=== PATIENT | female | born 1995 | race Caucasian/White ===

== ENCOUNTER 2016-06-03 08:04 | Inpatient (IN) | payer OTHER ==
[2016-06-03] MEDS ORDERED: Ibuprofen TAB* 600 MG PO PRN (13:09)
[2016-06-03] MEDS ORDERED: Glycerin ADULT SUPP PR PRN (13:09)
[2016-06-03] MEDS ORDERED: Witch Hazel PAD* JAR TOPICAL PRN (13:09)
[2016-06-03] MEDS ORDERED: Dibucaine 1% 28.35 GM TUBE PR PRN (13:09)
[2016-06-03] MEDS ORDERED: Acetaminophen TAB* 325 MG PO PRN (13:09)
[2016-06-03] MEDS ORDERED: oxyCODONE/Acetamin 5/325 MG* TAB PO PRN (13:09)
[2016-06-03] MEDS ORDERED: OXYTOCIN* 10 UNITS/ML 1 ML VIAL IM ONE (13:09)
[2016-06-03] MEDS: Docusate CAP* 100 MG PO SCH ×2 (14:14→19:52)
[2016-06-04 08:21] LABS: Hematocrit 35 % (35-47); Hemoglobin 11.8 g/dl (12.0-16.0); Mean Corpuscular HGB Conc 33 g/dl (31-36); Mean Corpuscular Hemoglobin 28 pg (27-31); Mean Corpuscular Volume 85 fL (80-97); Mean Platelet Volume 8 um3 (7.4-10.4); Red Blood Count 4.16 10^6/ul (4.0-5.4); Red Cell Distribution Width 14 % (10.5-15); White Blood Count 13.1 10^3/ul (3.5-10.8)
[2016-06-04] MEDS ORDERED: Ferrous Gluconate TAB* 324 MG TAB PO SCH (09:00)
[2016-06-04] MEDS: Docusate CAP* 100 MG PO SCH (09:51)
[2016-06-04 12:32] VITALS: BP 142/82
== END 2016-06-04 14:16 | disposition home or self-care (01) | DRG 560 ==
LOC: MCHOBOUT 08:04 → MCHOB 08:24
PROVIDERS: ADMIT Midwife; ATTEND Midwife
PROC: 10E0XZZ Delivery of Products of Conception, External Approach (ICD-10-PCS; principal; 2016-06-03)
PROC: 10907ZC Drainage of Amniotic Fluid, Therapeutic from Products of Conception, Via Natural or Artificial Opening (ICD-10-PCS; 2016-06-03)
PROC: 3E033VJ Introduction of Other Hormone into Peripheral Vein, Percutaneous Approach (ICD-10-PCS; 2016-06-03)
DX: O48.0 Post-term pregnancy (principal); Z37.0 Single live birth; Z3A.42 42 weeks gestation of pregnancy
CPT/HCPCS: 36415; 85027; A9270-GY; J2590

== ENCOUNTER → 2016-07-13 06:41 | Day surgery (SDC) | payer OTHER ==
[~2016-07-13 06:41] MED LIST: Atracurium* 10 MG/ML 10 ML VIAL ONE; Atropine 1MG/ML INJ* 1 ML VIAL ONE; Buffered Lidocaine 1% SYRIN* 3 ML/SYR SYRINGE INTRADERM ONE; Bupivacaine 0.5% SDV PF* 30 ML VIAL ONE; Dexamethasone IV* 4 MG/ML 1 ML (4 MG) ONE; DiMENhydriNATE IV* 50 MG/ML VIAL IV PUSH PRN; Famotidine TAB* 20 MG ONE; Famotidine TAB* 20 MG PO ONE; Lidocaine 2% PF* 5 ML VIAL ONE; Metoclopramide TAB* 10 MG ONE; Metoclopramide TAB* 10 MG PO ONE; Ondansetron INJ* 2 MG/ML VIAL ONE; Propofol* 10 MG/ML 20 ML BTL IV PUSH ONE; Scopolamine 1.5 mg* PATCH ONE; Scopolamine 1.5 mg* PATCH TRANSDERM ONE; Sodium Citrate/Citric Acid* 15 ML UDC ONE; Sodium Citrate/Citric Acid* 15 ML UDC PO ONE; Succinylcholine* 20 MG/ML 10 ML VIAL ONE; celeCOXIB CAP* 100 MG ONE; celeCOXIB CAP* 200 MG PO ONE; fentaNYL* 50 MCG/ML 2 ML VIAL (100 MCG VIAL) IV PRN; fentaNYL* 50 MCG/ML 2 ML VIAL (100 MCG VIAL) ONE; oxyCODONE/Acetamin 5/325 MG* TAB PO PRN
[2016-07-13 06:44] LABS: Manual Entry Verification CAR0052; UR Preg Internal Control QC Line Present; UR Preg Kit Lot# 6030156
[2016-07-13 07:35] LABS: Hematocrit 37 % (35-47); Hemoglobin 12.2 g/dl (12.0-16.0); Mean Corpuscular HGB Conc 33 g/dl (31-36); Mean Corpuscular Hemoglobin 28 pg (27-31); Mean Corpuscular Volume 84 fL (80-97); Mean Platelet Volume 8 um3 (7.4-10.4); Red Blood Count 4.43 10^6/ul (4.0-5.4); Red Cell Distribution Width 14 % (10.5-15); White Blood Count 8.7 10^3/ul (3.5-10.8)
[2016-07-13 10:13] VITALS: BP 127/80
--- NOTE | 2016-07-13 12:04 | OP ---
DATE OF OPERATION: 07/13/16 [facility] DATE OF : [birth year] SURGEON: Candida Sandhu MD CHERRY SORTER: None. ANESTHESIOLOGIST: Adalberto Miranda MD ANESTHESIA: General PRE-OP DIAGNOSIS: Multiparity, desires permanent sterilization. POST-OP DIAGNOSIS: Multiparity, desires permanent sterilization. OPERATIVE PROCEDURE: Laparoscopic bilateral tubal ligation with fulguration. EBL: Minimal. FLUIDS: Crystalloid. COMPLICATIONS: None. FINDINGS: Normal-appearing uterus, ovaries and tubes. DESCRIPTION OF PROCEDURE: After informed consent was signed, the patient was taken to the operating room where she was given general anesthesia that was found to be adequate. She was prepped and draped in the dorsal lithotomy position in the [facility]. A speculum was placed into the vagina to expose the cervix and the anterior lip of the cervix was grasped with a single- tooth tenaculum. The Aireumlka manipulator was then inserted into the cervix without difficulty. The speculum was removed, gloves were changed and attention was turned to the abdomen. The infraumbilical fold was grasped with an Allis clamp and injected with lidocaine with epinephrine. A 5 mm incision was then made with a scalpel in a vertical fashion. The Visiport and the camera was then assembled and used to enter the abdomen under direct visualization. Trocar was removed, CO2 was connected and the abdomen was insufflated with confirmation to the abdominal cavity. Inspection of the abdominal cavity revealed the previously mentioned findings. A right lateral port was then inserted. First lidocaine was injected followed by a 5 mm incision in the skin with the scalpel and then direct visualization was used to enter the abdomen with a 5 mm trocar. The Kleppinger was then assembled and inserted through the port. First the right tube was grasped, followed to the fimbriated end and then cauterized in the entire mid portion of the tube. Attention was turned to the left tube which was also followed to the fimbriated end, grasped with a Kleppinger and cauterized in the entire mid portion of the tube. Good hemostasis was noted. The ports were then removed. The abdomen was desufflated. Incisions were closed with one [id number]-gb-[id number] suture of 4-0 Vicryl followed by Mastisol and Steri-Stirrups. The patient was cleaned, placed back in the supine position, awakened from anesthesia and taken to the recovery room in stable condition. [id number]/[facility] #: [id number] JUAN ALBERTO
== END | disposition home or self-care (01) ==
LOC: OR 06:41
PROVIDERS: ATTEND Obstetrics & Gynecology
DX: Z30.2 Encounter for sterilization (principal)
CPT/HCPCS: 36415; 81025; 85025; 86850; 86900; 86901; A9270-GY; J0330; J0461; J1100; J2405; J2704; J3010

== ENCOUNTER 2019-03-26 08:13 | Emergency (ER) | payer OTHER ==
--- OUTSIDE RECORDS SUMMARY | 2019-03-26 08:19 | XMS REPORT | Summary of Care ---
:1995 Author Organization [facility] Address [address] [place] [address] Care Team Providers Name Role Phone RadhaSami montanezyas Primary Care Provider Unavailable Reason for Visit Reason Comments Physical for work Flu Vaccine Encounter Details Date Type Department Care Team Description 02/03/2019 Office Visit [place] Alysha hPan, Routine general medical examination at a health care facility (Primary Dx); Practice [facility] [facility] PPD screening test; [address] [facility] [place] [address] [place] [address] [phone] Allergies No Known Allergiesdocumented as of this encounter (statuses as of 02/03/2019) Medications Medication Sig Dispensed Refills Start Date End Date Status Multiple Vitamin Take by mouth. 0 Active (MULTI-VITAMIN DAILY PO) documented as of this encounter (statuses as of 02/03/2019) Active Problems No known active problemsdocumented as of this encounter (statuses as of 2018) Immunizations Name Administration Dates Next Due DTAP Vaccine 11/25/1998, 07/02/1995, 1994, 1994, 1994 HIB 07/02/1995, 1994, 1994, 1994 Hepatitis A Vaccine Peds 12/15/2010, 11/29/2009 Hepatitis B Vaccine 1994, 1994, 1994 Human Papillomavirus 06/26/2007, 02/13/2007, 11/19/2006 Influenza (IM) Preservative Free 02/03/2019, 02/13/2007 Influenza Vaccine Nasal 01/22/2009 MENINGOCOCCAL CONJUGATE VACCINE 08/23/2013, 11/19/2006 MMR VACCINE 11/25/1998, 07/02/1995 Polio - Inactivated Vaccine 11/25/1998, 1994, 1994, 1994 TDAP Vaccine 05/29/2011, 11/17/2005 Varicella Vaccine Live 11/24/2008, 03/26/1995 documented as of this encounter Social History Tobacco Use Types Packs/Day Years Used Date Never Assessed Sex Assigned at Date Recorded Not on file Job Start Date Occupation Industry Not on file Not on file Not on file Travel History Travel Start Travel End No recent travel history available. documented as of this encounter Last Filed Vital Signs Vital Sign Reading Time Taken Comments Blood Pressure 118/50 02/03/2019 1:50 PM EDT Pulse 80 02/03/2019 1:50 PM EDT Temperature - - Respiratory Rate - - Oxygen Saturation 99% 02/03/2019 1:50 PM EDT Inhaled Oxygen Concentration - - Weight 116.6 kg (257 lb) 02/03/2019 1:50 PM EDT Height 165.1 cm (5' 5") 02/03/2019 1:50 PM EDT Body Mass Index 42.77 02/03/2019 1:50 PM EDT documented in this encounter Patient Instructions Patient InstructionsAlysha Peñaloza FNP - 02/03/2019 2:00 PM EDTPPD read in 48 - 72 hours Follow up to establish with new primary care physician documented in this encounter Progress Notes Alysha Peñaloza FNP - 02/03/2019 2:00 PM EDT PATIENT: Tami Abdullahi : 1995 DATE OF SERVICE: 02/03/2019 CHIEF COMPLAINT: Chief Complaint Patient presents with Physical for work Flu Vaccine Subjective HISTORY OF PRESENT ILLNESS: Tami Abdullahi is a 23-y.o. female. HPI Here for physical for work - needs PPD and Flu vaccines No past medical history on file. No family history on file. Current Outpatient Medications Medication Sig Multiple Vitamin (MULTI-VITAMIN DAILY PO) Take by mouth. No current facility-administered medications for this visit. No Known Allergies Social History Socioeconomic History Marital status: Spouse name: Not on file Number of children: Not on file Years of education: Not on file Highest education level: Not on file Occupational History Not on file Social Needs Financial resource strain: Not on file Food insecurity: Worry: Not on file Inability: Not on file Transportation needs: Medical: Not on file Non-medical: Not on file Tobacco Use Smoking status: Not on file Substance and Sexual Activity Alcohol use: Not on file Drug use: Not on file Sexual activity: Not on file Lifestyle Physical activity: Days per week: Not on file Minutes per session: Not on file Stress: Not on file Relationships Social connections: Talks on phone: Not on file Gets together: Not on file Attends synagogue service: Not on file Active member of club or organization: Not on file Attends meetings of clubs or organizations: Not on file Relationship status: Not on file Intimate partner violence: Fear of current or ex partner: Not on file Emotionally abused: Not on file Physically abused: Not on file Forced sexual activity: Not on file Other Topics Concern Not on file Social History Narrative Not on file Over the last 2 weeks, have you been feeling down, depressed, anxious, or hopeless?: 0 Over the past 2 weeks, have you felt little interest or pleasure in doing things ?: 0 REVIEW OF SYSTEMS: Review of Systems Constitutional: Negative for fever and malaise/fatigue. HENT: Negative for congestion, ear pain and sore throat. Eyes: Negative for discharge. Respiratory: Negative for cough and hemoptysis. Gastrointestinal: Negative for diarrhea, nausea and vomiting. Musculoskeletal: Negative for back pain. Objective PHYSICAL EXAM: VITALS: BP 118/50 | Pulse 80 | Ht 5' 5" (1.651 m) | Wt 257 lb (116.6 kg) | SpO2 99% | BMI 42.77 kg/m Body mass index is 42.77 kg/m. Physical Exam Vitals signs reviewed. Constitutional: Appearance: She is obese. HENT: Head: Normocephalic and atraumatic. Right Ear: Hearing and tympanic membrane normal. Left Ear: Hearing and tympanic membrane normal. Nose: Rhinorrhea present. Mouth/Throat: Lips: [place]. Mouth: Mucous membranes are moist. Pharynx: Oropharynx is clear. Uvula midline. No oropharyngeal exudate or posterior oropharyngeal erythema. Eyes: Conjunctiva/sclera: Conjunctivae normal. Pupils: Pupils are equal, round, and reactive to light. Neck: Musculoskeletal: Normal range of motion. Cardiovascular: Rate and Rhythm: Normal rate and regular rhythm. Pulses: Normal pulses. Pulmonary: Effort: Pulmonary effort is normal. Breath sounds: Normal breath sounds. Abdominal: General: Bowel sounds are normal. There is no distension. Palpations: Abdomen is soft. Tenderness: There is no tenderness. There is no guarding or rebound. Musculoskeletal: Normal range of motion. Lymphadenopathy: Cervical: No cervical adenopathy. Skin: General: Skin is warm and dry. Capillary Refill: Capillary refill takes less than 2 seconds. Findings: No rash. Neurological: Mental Status: She is alert and oriented to person, place, and time. Cranial Nerves: Cranial nerves are intact. Sensory: Sensation is intact. Gait: Gait is intact. Psychiatric: Mood and Affect: Mood normal. ASSESSMENT / IMPRESSION: ICD-9-CM ICD-10-CM 1. Routine general medical examination at a health care facility V70.0 Z00.00 2. PPD screening test V74.1 Z11.1 PPD 3. Flu vaccine need V04.81 Z23 NM FLU VACCINE PRES FREE 6MOS+ Plan PPD read in 48 - 72 hours Follow up to establish with new primary care physician Author: EDUARDO Juan 02/03/2019 14:18 documented in this encounter Plan of Treatment Date Type Specialty Care Team Description 02/06/2019 Nurse/Clinical Support Internal Medicine Name Type Priority Associated Diagnoses Date/Time PPD POCT Routine PPD screening test 02/03/2019 2:15 PM EDT Health Maintenance Due Date Last Done Comments CHLAMYDIA SCREENING 1995 PAP SMEAR 1994 HIV SCREENING 2009 INFLUENZA VACCINE (#1) 2018 01/22/2009, 02/13/2007 DEPRESSION SCREENING 02/04/2020 02/03/2019 HPV IMMUNIZATION SERIES Completed 06/26/2007, 02/13/2007, 11/19/2006 MENINGOCOCCAL VACCINE IMM Aged Out 08/23/2013, 11/19/2006 No longer eligible based on patient's age to complete this topic PNEUMOCOCCAL 0-64 YRS Aged Out No longer eligible based on patient's age to complete this topic documented as of this encounter Results Not on filedocumented in this encounter Visit Diagnoses Diagnosis Routine general medical examination at a health care facility - Primary PPD screening test Screening examination for pulmonary tuberculosis Flu vaccine need Need for prophylactic vaccination and inoculation against influenza documented in this encounter (Work) documented as of this encounter
--- NOTE | 2019-03-26 08:20 | UC ---
Throat Pain/Nasal Rhett HPI - HPI Summary HPI Summary: Patient's a 24-year-old female presents with 2 views progressive sore throat. Patient states this morning have painful swallowing. Patient took NyQuil last night but no analgesic today. Patient reports mild fullness in her right ear. Patient denies fevers or chills. No abdominal pain. No nausea vomiting. Patient is able to drink water but states it hurts. Patient states she is not . Denies sick contacts. works in [employer]. Patient's medications as entered in the EMR reviewed - History of Current Complaint Stated Complaint: sore THROAT Hx Obtained From: Patient Hx Last Menstrual Period: 01/21/18 - Allergies/Home Medications Allergies/Adverse Reactions: Allergies Allergy/AdvReac Type Severity Reaction Status Date / Time No Known Allergies Allergy Verified 03/26/19 08:24 PMH/Surg Hx/FS Hx/Imm Hx Previously Healthy: Yes - Surgical History Surgical History: Yes Surgery Procedure, Year, and Place: tubal ligation- july 2016 - Family History Known Family History: Positive: Non-Contributory Negative: Respiratory Disease - Social History Occupation: Employed Full-time Lives: With Family Alcohol Use: None Substance Use Type: None Smoking Status (MU): Never Smoked Tobacco Have You Smoked in the Last Year: No - Immunization History Most Recent Influenza Vaccination: fall 2015 @ work Most Recent Tetanus Shot: 02/22/16 Most Recent Pneumonia Vaccination: none Review of Systems All Other Systems Reviewed And Are Negative: Yes Constitutional: Positive: Fatigue ENT: Positive: Sore Throat, Sinus Congestion Is Patient Immunocompromised?: No Physical Exam - Summary Physical Exam Summary: Vital Signs Reviewed: Yes A+Ox3, no distress Eyes: Conjunctiva Clear, SAVANNA. EOM intact and full ENT: Hearing grossly normal TM x 2 clear, turbinates inflammed and boggy, + PND , mmoist, uvula midline, + exudate b/l tonsils, + erythema/ speaking full easy sentences, no muffle, no drooling Neck: Positive: Supple. no LA, Respiratory: Positive: No respiratory distress, No accessory muscle use + CTA throughout no w/r Cardiovascular: RRR nl s1, s2 no m/r CBT <2 sec abd soft + BS nt/nd no guarding, no distension Musculoskeletal Exam: JENKINS x 4 without difficulty Strength Intact, ROM Intact Neurological: Positive: Alert, + sensation throughout Psychological: Positive: Normal Response To examiner Skin: Positive: no rash, no ecchymosis Triage Information Reviewed: Yes Throat Pain/Nasal Course/Dx - Course Course Of Treatment: Patient presents to urgent care with 2-3 days progressive sore throat. Patient reports painful swallowing. No fevers or chills. Patient took NyQuil last night no analgesic today. No sick contacts. Exam vital signs are stable. Patient was suddenly elevated blood pressure. Recommend follow up PCP. Patient does have erythema to both of her tonsils as well as exudate on both tonsils. Uvula midline. Will start patient on amoxicillin. Reviewed with patient sedation precautions. Patient also discussed. His own will give her 5 day course. Return precautions discussed. Work note given. Patient comfortable on agreement with plan. - Differential Dx/Diagnosis Provider Diagnosis: Strep pharyngitis Discharge ED - Sign-Out/Discharge Documenting (check all that apply): Patient Departure All imaging exams completed and their final reports reviewed: No Studies - Discharge Plan Condition: Stable Disposition: HOME Prescriptions: Amoxicillin PO (*) [Amoxicillin 400 MG/5 ML SUSP*] 560 mg PO BID #1 bottle predniSONE [Prednisone 20 MG TAB] 40 mg PO DAILY #10 tablet Patient Education Materials: Strep Throat (ED) Forms: *Work Release Referrals: Radha BRAR,[facility] [Primary Care Provider] - Additional Instructions: - Okay to alternate ibuprofen (Advil, Motrin) and Tylenol every 3 hours for pain. Take with food. Do NOT take for more than 4-5 days - Okay to gargle and spit warm salt water every 4 hours as needed for pain - Stay well hydrated - frequent sips of cold fluids will be soothing to your throat (popsicles, jello, ice cream, ice water). Avoid excess caffeine until your symptoms have resolved. -Throat infections are spread by oral secretions - do not share eating or drinking utensils until you symptoms are resolved. Clean items that may get your secretions such as cell phones, ipads, computer mouse, television remotes. Once you have been on antibiotics for 2 days, change your toothbrush and your pillowcase. - Take antibiotics and prednisone as prescribed - humidify the air in the room where you sleep - boil water, run a hot steam shower, vaporizer, cups of water by heat register - Okay to take over the counter cough and decongestant medication - Contact your doctor to arrange a follow-up appointment as needed - Billing Disposition and Condition Condition: STABLE Disposition: Home
[2019-03-26 08:24] VITALS: BP 144/86
== END 2019-03-26 09:10 | disposition home or self-care (01) ==
LOC: UCEAST 08:13
DX: J02.0 Streptococcal pharyngitis (principal); R53.83 Other fatigue
CPT/HCPCS: 87651; 99212; G0463

== ENCOUNTER 2019-08-04 09:15 | Emergency (ER) | payer OTHER ==
[2019-08-04 09:28] VITALS: BP 153/88
--- NOTE | 2019-08-04 09:32 | UC ---
Cardiac HPI - HPI Summary HPI Summary: 24 y/o female presents to the urgent care c/o RT posterior side rib pain s/p injury with her porch on Sunday08/01/2019. Pt reports she was cleaning and she strike the porch railing with her Rt lateral side of her chest. Sunday morning she woke up w/ pain. She has taken Tylenol PO to alleviate symptoms. However, pain has worsen with time and this morning pain is worse 5/10 with movement and with deep breathing w/o any radiation. Pt has not taken anything to alleviate symptoms. Pt denies difficulty breathing fever, cough, SOB, wheezing, chest pain, abdominal pain, LAWTON, dizziness, sick contacts, N/V/D. - History of Current Complaint Chief Complaint: UCGeneralIllness Stated Complaint: RIB INJURY Time Seen by Provider: 08/04/19 09:29 Hx Obtained From: Patient Hx Last Menstrual Period: 07/29/19 Onset/Duration: Sudden Onset, Lasting Days - 3 days, Still Present, Worse Since - today Timing: Constant Initial Severity: Mild Current Severity: Moderate Pain Intensity: 5 Chest Pain Location: Discrete at: - RT lateral rib side pain s/p injury Character: Sharp/Stabbing Aggravating Factor(s): Deep Breaths Alleviating Factor(s): Rest Associated Signs & Symptoms: Negative: Chest Pain, Vision Changes, Anxiety, Recent Stress, Headaches, Numbness, Tingling, Dizziness, SOB, Swelling, Fever, Palpitations, Cough, Back Pain, Abdominal Pain, Calf Pain/Swelling - Risk Factors Pulmonary Embolism Risk Factors: Negative Cardiac Risk Factors: Negative Atrial Fibrillation: Negative TAD Risk Factors: Negative - Allergy/Home Medications Allergies/Adverse Reactions: Allergies Allergy/AdvReac Type Severity Reaction Status Date / Time No Known Allergies Allergy Verified 08/04/19 09:28 Home Medications: Home Medications Multiple Vitamins W/ Minerals [Multivitamin Adult] 1 chw PO DAILY 07/06/16 [ History Confirmed 08/04/19] PMH/Surg Hx/FS Hx/Imm Hx Previously Healthy: Yes - Pt denies PMHX - Surgical History Surgical History: Yes Surgery Procedure, Year, and Place: tubal ligation- july 2016 - Family History Known Family History: Positive: None - Pt denies FMHX, Non-Contributory Negative: Respiratory Disease - Social History Occupation: Employed Full-time Lives: With Family Alcohol Use: None Substance Use Type: None Smoking Status (MU): Never Smoked Tobacco Have You Smoked in the Last Year: No - Immunization History Most Recent Influenza Vaccination: fall 2015 @ work Most Recent Tetanus Shot: 02/22/16 Most Recent Pneumonia Vaccination: none Review of Systems All Other Systems Reviewed And Are Negative: Yes Constitutional: Positive: Negative Skin: Positive: Negative Eyes: Positive: Negative ENT: Positive: Negative Respiratory: Positive: Negative Cardiovascular: Positive: Negative Gastrointestinal: Positive: Negative Genitourinary: Positive: Negative Motor: Positive: Negative Neurovascular: Positive: Negative Musculoskeletal: Positive: Other: - RT lateral rib pain s/p injury Neurological/Mental Status: Positive: Negative Psychological: Positive: Negative Is Patient Immunocompromised?: No Physical Exam - Summary Physical Exam Summary: Vital Signs Reviewed: Yes General: well developed, well nourished obese female sitting in the examining table w/o any apparent distress Eyes: Positive: Conjunctiva Clear - PERRLA, EOMI, fundi grossly normal ENT: Positive: Normal ENT inspection, Hearing grossly normal, Pharynx normal, Nasal congestion - edematous and erythematous nasal mucosa, Nasal drainage - yellowish drainage, TMs normal. Negative: Tonsillar swelling, Tonsillar exudate Neck: Positive: Supple, Nontender, No Lymphadenopathy Respiratory: no orthopnea or dyspnea. Able to speak in full sentences, no retractions or accessory muscle use, no tripod position, stridor, or head bobbing. Positive breath sounds bilaterally. No wheezing, no rhonchi , no crackles or rales. Point tenderness over the RT lateral and posterior ribs 9-10 w/o any soft tissue swelling or bruise or ecchymosis. Cardiovascular: Positive: RRR, No Murmur, Pulses Normal, Brisk Capillary Refill Abdomen Description: Positive: Nontender, No Organomegaly, Soft. Negative: CVA Tenderness (R), CVA Tenderness (L) Bowel Sounds: Positive: Present Musculoskeletal Exam: Normal Musculoskeletal: Positive: Strength Intact, ROM Intact, No Edema Neurological Exam: Normal Psychological Exam: Normal Skin Exam: Normal Triage Information Reviewed: Yes Vital Signs: Initial Vital Signs Temp 98 F 08/04/19 09:23 Pulse 100 08/04/19 09:23 Resp 18 08/04/19 09:23 BP 153/88 08/04/19 09:23 Pulse Ox 100 08/04/19 09:23 - Assessment/Plan Course Of Treatment: 24 y/o female presents to the urgent care c/o RT posterior side rib pain s/p injury with her porch on Sunday08/01/2019. Pt reports she was cleaning and she strike the porch railing with her Rt lateral side of her chest. Sunday morning she woke up w/ pain. She has taken Tylenol PO to alleviate symptoms. However, pain has worsen with time and this morning pain is worse 5/10 with movement and with deep breathing w/o any radiation. Pt has not taken anything to alleviate symptoms. Pt denies difficulty breathing fever, cough, SOB, wheezing, chest pain, abdominal pain, LAWTON, dizziness, sick contacts, N/V/D. Hx obtained. Pt is hemodynamically stable. RT Rib and Chest X-ray ordered to r/o fracture. IMPRESSION: A questionable contour deformity of the lateral right 10th rib is annotated. Correlate with point tenderness. No displaced fracture or pneumothorax as per radiologist. Pt explained there is possible rib fracture. Pt given an Incentive Spirometer to improve lung function and avoid atelectasis. Nurse educated Pt on how to use it. Pt advised to continue taken Ibuprofen PO and advised to f/u w/ her PCP for further management on her Rib fracture. Also advised to avoid strenuous exercise or heavy lifting. Pt's BP is elevated today and advised to decrease salt in diet, monitor BP and f/u with PCP if BP continues to be elevated for further management. D/C instructions explained. Pt understood and agreed w/ plan of care. left clinic ambulating and hemodynamically stable. - Differential Diagnoses - Chest Pain Differential Diagnosis/HQI/PQRI: Chest Wall, Other: - rib fracture, rib contusion - Clinical Impression Provider Diagnosis: Right rib fracture, Elevated BP without diagnosis of hypertension Discharge ED - Sign-Out/Discharge Documenting (check all that apply): Patient Departure - D/c home All imaging exams completed and their final reports reviewed: Yes - Discharge Plan Condition: Stable Disposition: HOME Patient Education Materials: Rib Fracture (ED) Referrals: Radha BRAR,[facility] [Primary Care Provider] - 3 Days Additional Instructions: 1-Please take ibuprofen PO q6-8hrs prn as instructed after meals to alleviate pain and swelling. You can alternate with Tylenol PO if pain becomes severe. rest and avoid strenuous exercise or heavy lifting 2-Please use the Incentive Spirometry as the Nurse explained to improve lung function 3-If symptoms do not improve or worsen please f/u w/ your PCP in 3 days for further evaluation and treatment. 4-Your BP is elevated today and advised to decrease salt in diet, monitor BP and f/u with PCP for further management. - Billing Disposition and Condition Condition: STABLE Disposition: Home
[2019-08-04] MEDS ORDERED: Ibuprofen TAB* 400 MG PO ONE (09:52)
== END 2019-08-04 10:50 | disposition home or self-care (01) ==
LOC: UCEAST 09:15
DX: S29.9XXA Unspecified injury of thorax, initial encounter (principal); W22.8XXA Striking against or struck by other objects, initial encounter; Y93.H9 Activity, other involving exterior property and land maintenance, building and construction; Y92.008 Other place in unspecified non-institutional (private) residence as the place of occurrence of the external cause; R03.0 Elevated blood-pressure reading, without diagnosis of hypertension
CPT/HCPCS: 99212; A9270-GY; G0463